=== PATIENT | female | born 1965 | race American Indian/Alaskan Native ===

== ENCOUNTER 2019-02-09 17:26 | Emergency (ER) | payer SELFPAY ==
--- NOTE | 2019-02-09 18:04 | Emergency Department Report ---
Blank Doc - Documentation Documentation: This is a 53-year-old female that presents with left great toe pain. This initial assessment/diagnostic orders/clinical plan/treatment(s) is/are subject to change based on patient's health status, clinical progression and re- assessment by fellow clinical providers in the ED. Further treatment and workup at subsequent clinical providers discretion. Patient/guardians urged not to elope from the ED as their condition may be serious if not clinically assessed and managed. Initial orders include: 1- Patient sent to [facility] for further evaluation and treatment 2- xray
[2019-02-09 18:10] VITALS: BP 142/77
[2019-02-09] MEDS ORDERED: HYDROGEN PEROXIDE ONE (18:21)
[2019-02-09] MEDS ORDERED: HYDROGEN PEROXIDE TP ONE (18:24)
--- NOTE | 2019-02-09 19:32 | XRay Report ---
PROCEDURE: XR FOOT 3+V LT TECHNIQUE: Frontal, lateral, oblique views left foot HISTORY: left foot pain COMPARISONS: None FINDINGS: There is no evidence of fracture or, subluxation, lytic or blastic change or periosteal reaction. The joint spaces appear to be maintained. There are dorsal and plantar calcaneal spurs. IMPRESSION: 1. Dorsal and plantar calcaneal spurs. 2. Otherwise unremarkable study. This document is electronically signed by Sharmila Heath MD., February 09 2019 07:30:19 PM ET
[2019-02-10] MEDS ORDERED: TYLENOL PO ONE (00:21)
[2019-02-10] MEDS ORDERED: IBUPROFEN PO ONE ×2 (00:21→00:25)
--- NOTE | 2019-02-10 00:24 | Emergency Department Report ---
ED Lower Extremity HPI - General Chief Complaint: Extremity Injury, Lower Stated Complaint: LT BIG TOE INJURY Time Seen by Provider: 02/09/19 18:03 Source: patient Mode of arrival: Ambulatory Limitations: No Limitations - History of Present Illness Initial Comments: 53-year-old -[place] female to emergency Department complaining of continued toe pain after dropping a large ceramic pot onto her toe 1 week ago. Pain is dull and throbbing and not responding to ibuprofen. She still been ambulatory toe which may have delayed some of the healing process seeks further evaluation and treatment recommendations. There's been no bleeding noted. She has a history of diabetes and is reports that she had pulled some glass out of her foot at the time of the initial injury. MD Complaint: foot injury -: Gradual Injury: Toes: Right Type of Injury: blunt Place: home Severity: mild Worsens With: nothing Context: direct blow Associated Symptoms: able to partially bear weight. denies: swelling, numbness, ambulatory - Related Data Previous Rx's Medication Instructions Recorded Last Taken Type Ketorolac [Toradol] 10 mg PO Q6H PRN #14 tablet 02/10/19 Unknown Rx traMADol [Ultram] 50 mg PO Q6HR PRN #20 tablet 02/10/19 Unknown Rx Allergies Allergy/AdvReac Type Severity Reaction Status Date / Time Penicillins Allergy Unknown Verified 02/09/19 18:24 ED Review of Systems ROS: Stated complaint: LT BIG TOE INJURY Other details as noted in HPI Constitutional: denies: chills, fever Eyes: denies: eye pain, eye discharge, vision change ENT: denies: ear pain, throat pain Respiratory: denies: cough, shortness of breath, wheezing Cardiovascular: denies: chest pain, palpitations Endocrine: no symptoms reported Gastrointestinal: denies: abdominal pain, nausea, diarrhea Genitourinary: denies: urgency, dysuria, discharge Musculoskeletal: denies: back pain, joint swelling, arthralgia Skin: denies: rash, lesions Neurological: denies: headache, weakness, paresthesias Psychiatric: denies: anxiety, depression Hematological/Lymphatic: denies: easy bleeding, easy bruising ED Past Medical Hx - Past Medical History Hx Hypertension: Yes Hx Diabetes: Yes - Surgical History Past Surgical History?: Yes Hx Cholecystectomy: Yes Additional Surgical History: - Social History Smoking Status: Never Smoker Substance Use Type: None - Medications Home Medications: Home Medications Medication Instructions Recorded Confirmed Last Taken Type Ketorolac [Toradol] 10 mg PO Q6H PRN #14 tablet 02/10/19 Unknown Rx traMADol [Ultram] 50 mg PO Q6HR PRN #20 tablet 02/10/19 Unknown Rx ED Physical Exam - General Limitations: No Limitations General appearance: alert, in no apparent distress - Head Head exam: Present: atraumatic, normocephalic - Eye Eye exam: Present: normal appearance, PERRL, EOMI Pupils: Present: normal accommodation - ENT ENT exam: Present: normal exam, mucous membranes moist - Neck Neck exam: Present: normal inspection, full ROM - Respiratory Respiratory exam: Present: normal lung sounds bilaterally. Absent: respiratory distress, rales, rhonchi, accessory muscle use, decreased breath sounds - Cardiovascular Cardiovascular Exam: Present: regular rate, normal rhythm. Absent: systolic murmur, diastolic murmur, rubs, gallop - GI/Abdominal GI/Abdominal exam: Present: soft, normal bowel sounds. Absent: distended, tenderness, guarding, hyperactive bowel sounds, hypoactive bowel sounds, mass, bruit, pulsatile mass - Extremities Exam Extremities exam: Present: normal inspection, full ROM, normal capillary refill. Absent: pedal edema, joint swelling, calf tenderness - Expanded Lower Extremity Exam Right 1 - Swelling noted. Mild ecchymosis. Pulses 2+ capillary refill is brisk. Pain with palpation. No broken skin or subdural hematoma noted - Back Exam Back exam: Present: normal inspection. Absent: CVA tenderness (R), CVA tendern ess (L) - Neurological Exam Neurological exam: Present: alert, oriented X3, CN II-XII intact - Psychiatric Psychiatric exam: Present: normal affect, normal mood - Skin Skin exam: Present: warm, dry, intact, normal color. Absent: rash ED Course Vital Signs 02/09/19 02/09/19 18:06 18:11 Temperature 98.2 F 98.2 F Pulse Rate 104 H 104 H Respiratory 20 Rate Blood Pressure 142/77 Blood Pressure 142/77 [Right] O2 Sat by Pulse 99 Oximetry ED Lower Extremity MDM - EKG Data When compared to previous EKG there are: no significant change Critical care attestation.: If time is entered above; I have spent that time in minutes in the direct care of this critically ill patient, excluding procedure time. ED Disposition Clinical Impression: Toe contusion, Crush injury Disposition: DC- TO HOME OR SELFCARE Is pt being admited?: No Does the pt Need Aspirin: No Condition: Stable Instructions: Contusion in Adults (ED) Prescriptions: Ketorolac [Toradol] 10 mg PO Q6H PRN #14 tablet PRN Reason: Pain Referrals: JUAN GALLEGOS MD [Primary Care Provider] - 3-5 Days
[2019-02-10] MEDS ORDERED: TYLENOL ONE (00:25)
== END 2019-02-10 00:49 | disposition home or self-care (01) ==
LOC: ED 17:26
DX: S90.112A Contusion of left great toe without damage to nail, initial encounter (principal); I10 Essential (primary) hypertension; E11.9 Type 2 diabetes mellitus without complications; Z90.49 Acquired absence of other specified parts of digestive tract; W23.0XXA Caught, crushed, jammed, or pinched between moving objects, initial encounter; Y93.89 Activity, other specified; Y92.89 Other specified places as the place of occurrence of the external cause; Y99.8 Other external cause status; Z88.0 Allergy status to penicillin